=== PATIENT | female | born 1980 | race Caucasian/White ===

== ENCOUNTER 2018-12-12 09:07 | Emergency (ER) | payer MEDICAID | END 2018-12-12 11:33 | disposition home or self-care (01) | LOC: FTE 09:07 | DX: H10.13 Acute atopic conjunctivitis, bilateral (principal) | CPT/HCPCS: 99282 ==

== ENCOUNTER 2019-01-02 11:35 | Emergency (ER) | payer MEDICAID | END 2019-01-02 13:35 | disposition home or self-care (01) | LOC: FTE 11:35 | DX: L01.00 Impetigo, unspecified (principal) | CPT/HCPCS: 99283; Z7502 ==

== ENCOUNTER 2019-01-07 07:04 | Emergency (ER) | payer MEDICAID | END 2019-01-07 08:35 | disposition home or self-care (01) | LOC: FTE 08:35 | DX: H01.001 Unspecified blepharitis right upper eyelid (principal); H01.002 Unspecified blepharitis right lower eyelid; H01.005 Unspecified blepharitis left lower eyelid; H01.004 Unspecified blepharitis left upper eyelid | CPT/HCPCS: 99283; Z7502 ==